=== PATIENT | male | born 1975 | race Caucasian/White ===

== ENCOUNTER → 2020-11-27 | Outpatient (CLI) | payer MEDICARE, OTHER | LOC: CT 09:20 | DX: C18.4 Malignant neoplasm of transverse colon (principal); D64.9 Anemia, unspecified; K90.9 Intestinal malabsorption, unspecified; K76.0 Fatty (change of) liver, not elsewhere classified; R16.1 Splenomegaly, not elsewhere classified; R93.5 Abnormal findings on diagnostic imaging of other abdominal regions, including retroperitoneum | CPT/HCPCS: 36415; 82565; Q9967 ==

== ENCOUNTER → 2021-03-11 | Outpatient (CLI) | payer MEDICARE, OTHER | LOC: CT 12:08 | DX: C18.4 Malignant neoplasm of transverse colon (principal); D64.9 Anemia, unspecified; K90.9 Intestinal malabsorption, unspecified | CPT/HCPCS: 36415; 82565; Q9967 ==

== ENCOUNTER → 2021-09-23 | Outpatient (CLI) | payer MEDICARE, OTHER ==
[2021-09-23 09:50] LABS: HEMOGLOBIN 13.2 gm/dl (14.0-17.5); RED BLOOD COUNT 4.48 M/UL (4.20-5.50); WHITE BLOOD COUNT 7.4 K/UL (4.5-11.0)
[2021-09-23 10:19] LABS: BUN/CREATININE RATIO 17 (0-10)
== END ==
LOC: CT 09:29
PROVIDERS: Internal Medicine Hematology & Oncology
DX: C18.4 Malignant neoplasm of transverse colon (principal); D64.9 Anemia, unspecified; K90.9 Intestinal malabsorption, unspecified
CPT/HCPCS: 36415; 80053; 85025; Q9967